=== PATIENT | male | born 1990 | race Caucasian/White ===

== ENCOUNTER 2024-07-19 12:41 | Inpatient (IN) ==
[2024-07-19 13:31] LABS: iSTAT Ionized Calcium 1.16 mmol/l (1.12-1.32); iSTAT Potassium 3.9 mmol/L (3.3-5.0)
--- NOTE | 2024-07-19 13:55 | XRay Report ---
XR chest 1V not portable HISTORY: 33 years-old Male stroke alert acute stroke like symptoms COMPARISON: None TECHNIQUE: PA view of the chest FINDINGS: Cardiomediastinal and hilar silhouettes are within normal limits. No pneumothorax, pleural effusion o r airspace consolidation. The bones appear normal. IMPRESSION: No acute process. ACT 112: Negative or not required by law. The above report was generated using voice recognition software. It may contain grammatical, syntax o r spelling errors. Electronically signed by: Abdoul Kauffman M.D. 07/19/2024 1:54 PM
[2024-07-19 13:57] LABS: Hematocrit (blood only) 44.7 % (42.0-52.0); Hemoglobin 14.3 g/dl (14.0-18.0); Mean Corpuscular Hemoglobin 25.8 pg (25.0-34.0); Mean Corpuscular Volume 80.5 fL (80.0-100.0); Mean Platelet Volume 10.8 fL (9.4-12.4); Platelet Count 294 K/uL (130-400); RDW Coefficient of Variation 14.1 % (11.5-14.5); Red Blood Count 5.55 M/uL (4.70-6.10); White Blood Count 7.77 K/ul (4.8-10.8)
[2024-07-19 14:01] LABS: Albumin Globulin Ratio 1.6 (0.9-2); Albumin Level 4.2 gm/dl (3.4-5.0); BUN Creatinine Ratio 23.1 (10-20); Bilirubin,Total 0.4 mg/dl (0.2-1.0); Creatinine Clr Calc Pharmacy 142.5 ml/min; Globulin 2.7 gm/dl (2.5-4.0); Magnesium 1.9 mg/dl (1.7-2.4); Total Protein 6.9 gm/dl (6.0-8.3)
[2024-07-19 14:02] LABS: Partial Thromboplastin Ratio 0.9; Partial Thromboplastin Time 25 Seconds (21-31); Prothrombin Time 10.9 Seconds (9.0-12.0)
--- NOTE | 2024-07-19 15:01 | Emergency Department Note ---
Impression & Plan Acute CVA (cerebrovascular accident), Left-sided weakness ED Provider Note NAME: LAY LI Jr AGE: 33 SEX: M : 1990 ARRIVES VIA: Walk-In INFORMANT: Patient ED PROVIDER(S): Jc Vernon DO CHIEF COMPLAINT: Left-sided weakness HPI: Patient is a 33-year-old male who presents to the ER for left-sided weakness. He notes that this started yesterday morning when he woke up. He was having trouble talking and weakness on his left side. The talking has improved as well as the left-sided weakness. Significant other is present at bedside and confirms the left-sided weakness. Denies any headache or change or loss of vision. No chest pain or shortness of breath. No nausea vomiting or diarrhea. No dysuria urgency or frequency. No other exacerbating or remitting factors. ADDITIONAL HISTORY OBTAINED: Per HPI Chronic Medical/Social Conditions Affecting Care: Per HPI PAST MEDICAL HISTORY:See Below PAST SURGICAL HISTORY:See Below FAMILY HISTORY:See Below SOCIAL HISTORY:See Below HOME MEDICATIONS:See Below ALLERGIES:See Below VITALS:See Below PHYSICAL EXAMINATION: GENERAL: Sitting up in bed, alert, well appearing, well nourished, no distress, non-toxic EYE EXAM: normal conjunctiva. PERRL and EOM's grossly intact. OROPHARYNX: no exudate, no erythema, lips, buccal mucosa, and tongue normal and mucous membranes are moist NECK: supple, no nuchal rigidity, no adenopathy, non-tender LUNGS: Clear to auscultation. Normal chest wall mechanics HEART: no murmurs, S1 normal and S2 normal ABDOMEN: abdomen soft, non-tender, normo-active bowel sounds, no masses, no rebound or guarding. BACK: Back is symmetrical on inspection and there is no deformity, no midline tenderness, no CVA tenderness. SKIN: no rashes and no bruising UPPER EXTREMITIES: upper extremities are grossly normal. LOWER EXTREMITIES: No pitting edema. NEURO EXAM: Normal sensorium, cranial nerves II-XII intact, normal speech, subtle weakness on the left arm and left leg in comparison to the right. No drift. Finger to nose intact. Gross sensation intact. MEDICAL DECISION MAKING: Patient is a 33-year-old male who presents ER for left-sided weakness and trouble with his speech which started yesterday morning when he woke up. He is not a candidate for TNK. Stroke alert was not called. IV was established and blood work was obtained. Labs show no significant leukocytosis or anemia. INR unremarkable. BMP along with LFTs bilirubin is unremarkable. CT angios of the head and neck to show a right basal ganglial stroke. Patient was discussed with [facility] telestroke and they recommended 300 of Plavix, aspirin and admission to the hospitalist. Discussed case with the hospitalist for further evaluation management treatment. Consults/Care Managements Discussions: Per [facility] Triage Nursing notes reviewed. Limited review of prior medical records performed Vital Signs: reviewed and remarkable for HTN Differential diagnosis: Differential Diagnosis includes but is not limited to ischemic Stroke, hemorrhagic stroke, bells palsy, mass, neoplasm, migraine headache, seizure, subarachnoid hemorrhage, TIA, and transient global amnesia. ER treatment provided: See below Diagnostics interpreted by me include EKG and cardiac monitoring as listed below: -Cardiac Monitoring: An order was placed for continuous cardiac monitoring. The monitor shows a rate of 90 with sinus rhythm. -ECG: Sinus rhythm rate 80 Normal axis No PVCs QTc 424 -Laboratory studies:Interpreted by me as stated above in MDM and shown below. Imaging studies: Xrays: As interpreted by me: Portable AP upright 1 view of the chest shows no focal infiltrate CTs show: CT angios of the head and neck show CVA Procedures:none Critical Care: None Past Med/Surg History Problem List (Updated 07/19/24 @ 20:43 by Jc Vernon DO) Left-sided weakness (Acute) Acute CVA (cerebrovascular accident) (Acute) Social History Smoking Status: Never smoker Tobacco Type: Smokeless Tobacco (Dip or Chew) Do You Dip or Chew Tobacco: Yes; Hx Alcohol Use: Yes Alcohol type: beer Hx Substance Use: No Preferred Language: Indonesian Vp Product Required: No Beliefs That Will Affect Care: None Current Living Situation: Spouse Feels Safe at Home: Yes Assistive Devices: None Allergies Allergies Allergy/AdvReac Type Severity Reaction Status Date / Time No Known Allergies Allergy Unverified 07/19/24 17:36 Home Meds Home Medications Medication Instructions Recorded Confirmed Vitamin C 1 tab PO DAILY 07/19/24 07/19/24 flaxseed oil 1 cap PO DAILY 07/19/24 07/19/24 multivitamin 1 tab PO DAILY 02/03/25 02/03/25 vitamin E 1 cap PO DAILY 07/19/24 07/19/24 Results & Data (ED) Vital Signs Vital Signs - 24 hr 07/19/24 12:44 07/19/24 15:02 07/19/24 15:27 Temperature 36.8 C Temperature Source Temporal Artery Scan Pulse Rate 94 H 77 Pulse Rate [Right Finger] 72 Pulse Rhythm Pulse Rhythm [Right Finger] Regular Pulse Strength [Right Finger] Normal Respiratory Rate 18 16 Respiratory Effort / Characteristics Non-Labored Spontaneous Non-Labored Respiratory Depth Normal Normal Respiratory Pattern Regular Regular Blood Pressure 151/93 H Blood Pressure [Right Arm] 148/84 H Blood Pressure Mean 112 Blood Pressure Mean [Right Arm] 105 Blood Pressure Position [Right Arm] Lying Pulse Oximetry 98 99 Oxygen Delivery Method Room Air Room Air Sepsis Recent Fever Within 48 Hours No Sepsis New/Unexplained Change in Mental Status No Sepsis Action Taken by Nursing No Action Required 07/19/24 15:27 Temperature Temperature Source Pulse Rate 78 Pulse Rate [Right Finger] Pulse Rhythm Regular Pulse Rhythm [Right Finger] Pulse Strength [Right Finger] Respiratory Rate 16 Respiratory Effort / Characteristics Respiratory Depth Respiratory Pattern Blood Pressure Blood Pressure [Right Arm] Blood Pressure Mean Blood Pressure Mean [Right Arm] Blood Pressure Position [Right Arm] Pulse Oximetry 98 Oxygen Delivery Method Room Air Sepsis Recent Fever Within 48 Hours Sepsis New/Unexplained Change in Mental Status Sepsis Action Taken by Nursing Laboratory Data 07/19/24 13:14 07/19/24 13:14 Lab Results 07/19/24 07/19/24 Range/Units 13:14 13:19 WBC 7.77 (4.8-10.8) K/ul RBC 5.55 (4.70-6.10) M/uL Hgb 14.3 (14.0-18.0) g/dl POC Hgb 15.0 (14.0-18.0) g/dl Hct 44.7 (42.0-52.0) % POC Hct 44 (42-52) % MCV 80.5 (80.0-100.0) fL MCH 25.8 (25.0-34.0) pg MCHC 32.0 (32.0-36.0) g/dL RDW Std Deviation 41.0 (36.4-46.3) fL RDW Coeff of Arlin 14.1 (11.5-14.5) % Plt Count 294 (130-400) K/uL MPV 10.8 (9.4-12.4) fL PT 10.9 (9.0-12.0) Seconds INR 1.0 (0.9-1.1) APTT 25 (21-31) Seconds PTT Ratio 0.9 POC Sodium 140 (135-144) mmol/L Sodium 139 (136-145) mmol/L POC Potassium 3.9 (3.3-5.0) mmol/L Potassium 4.0 (3.5-5.1) mmol/L POC Chloride 103 (101-112) mmol/L Chloride 104 (98-107) mmol/L Carbon Dioxide 28 (21-32) mmol/L POC Total CO2 25 (24-31) mmol/L Anion Gap 7 (3-11) POC Anion Gap 17.0 (16-25) mmol/L POC BUN 21 H (7-18) mg/dl BUN 21 (6-23) mg/dl Creatinine 0.91 (0.6-1.4) mg/dl POC Creatinine 1.0 (0.6-1.3) mg/dl Est Cr Clr Drug Dosing 142.5 ml/min eGFR 114.13 BUN/Creatinine Ratio 23.1 H (10-20) Glucose 123 H (70-99(Fasting)) mg/dl POC Glucose (other) 122 H (70-99) mg/dl Calcium 9.0 (8.6-10.3) mg/dl POC Ioniz Calcium Liz 1.16 (1.12-1.32) mmol/l Magnesium 1.9 (1.7-2.4) mg/dl Total Bilirubin 0.4 (0.2-1.0) mg/dl AST 21 (13-39) U/L ALT 29 (7-52) U/L Alkaline Phosphatase 43 (34-104) U/L Total Protein 6.9 (6.0-8.3) gm/dl Albumin 4.2 (3.4-5.0) gm/dl Globulin 2.7 (2.5-4.0) gm/dl Albumin/Globulin Ratio 1.6 (0.9-2) Lyme Disease Screen Negative (Negative) Administered Medications Atorvastatin Calcium (Atorvastatin 40 Mg Tab) 40 mg PO QPM MAURI Stop: 08/18/24 17:59 Last Admin: 07/19/24 20:25 Dose: 40 mg Documented By: BURTON Discontinued Medications Aspirin (Aspirin Chew 324 Mg) 81 mg PO NOW STA Stop: 07/19/24 15:56 Last Admin: 07/19/24 16:09 Dose: 81 mg Documented By: BENITO Clopidogrel Bisulfate (Clopidogrel Bisulfate 300 Mg Tab) 300 mg PO NOW STA Stop: 07/19/24 15:56 Last Admin: 07/19/24 16:09 Dose: 300 mg Documented By: BEINTO Ioversol (Optiray 320 125ml) 119 ml IV ONCE ONE Stop: 07/19/24 15:10 Last Admin: 07/19/24 15:09 Dose: 119 ml Documented By: BOY Imaging Data Radiologist's Impression: Chest X-Ray 07/19/24 12:54 XR chest 1V not portable HISTORY: 33 years-old Male stroke alert acute stroke like symptoms COMPARISON: None TECHNIQUE: PA view of the chest FINDINGS: Cardiomediastinal and hilar silhouettes are within normal limits. No pneumothorax, pleural effusion or airspace consolidation. The bones appear normal. IMPRESSION: No acute process. ACT 112: Negative or not required by law. The above report was generated using voice recognition software. It may contain grammatical, syntax or spelling errors. Electronically signed by: Abdoul Kauffman M.D. 07/19/2024 1:54 PM Head CTA 07/19/24 14:54 CT angio head wo/w CLINICAL HISTORY: Left-sided weakness. COMPARISON STUDY: No previous studies for comparison. TECHNIQUE: Unenhanced and arterial phase imaging of the head was performed. Intravenous injection of 119 cc of Optiray 320 IV was uneventful. Sagittal and coronal reconstructions were viewed as well as maximal intensity projections on an independent 3-D workstation. Automated exposure control was utilized for the study. A dose lowering technique was utilized adhering to the principles of ALARA. FINDINGS: No acute intracranial hemorrhage, midline shift or mass effect is present. Ventricular system is normal. Basal cisterns are patent. There are no intra-axial collections. There is a 3.2 x 0.8 cm elongated hypodense focus within the right basal ganglia. No additional abnormalities are identified on this examination. The bilateral M1, M2, A1 and A2 segments are patent. No large vessel occlusion is identified. No intracranial aneurysm is identified. The posterior circulation is also intact. The major dural sinuses are patent. IMPRESSION: 1. No acute intracranial hemorrhage. 2. 3.2 x 0.8 cm hypodense focus within the right basal ganglia suggestive of an acute infarct. No mass effect. Findings discussed with Dr. Vernon at time of dictation. 3. No large vessel occlusion. No intracranial aneurysm. ACT 112: Negative or not required by law. Electronically signed by: Dominic Redd M.D. 07/19/2024 3:38 PM Neck CTA 07/19/24 14:54 CT angio neck with con CLINICAL HISTORY: 33 years-old Male with l sided weakness. Acute stroke like symptoms with left-sided weakness COMPARISON STUDY: CTA head of same day TECHNIQUE: Following the IV administration of 119 mL of Optiray, CT angiogram of the neck was performed from the aortic arch to the skull base. Images are reviewed in the axial, sagittal, and coronal planes. 3-D MIPS images are created and assessed. IV contrast was administered without complication. All measurements were calculated based on NASCET criteria. A dose lowering technique was utilized adhering to the principles of ALARA. CT DOSE: 1594.52 mGy.cm FINDINGS: Three-vessel morphology of the thoracic arch. There is patency of the and innominate and image subclavian arteries. The common and internal carotid arteries are widely patent. Codominant and patent vertebral arteries. Imaged basilar artery is patent. Lung apices appear clear. Unremarkable soft tissues. Postoperative changes of the mandible. IMPRESSION:Unremarkable CTA of the neck. ACT 112: Negative or not required by law. The above report was generated using voice recognition software. It may contain grammatical, syntax or spelling errors. Electronically signed by: Abdoul Kauffman M.D. 07/19/2024 3:26 PM Discharge Plan Visit Data Chief Complaint: TIA Symptoms Stated Complaint: L SIDED WEAKNESS, TROUBLE TALKING, STARTED YESTERD ED Provider: Jc Vernon Discharge Problem: Acute CVA (cerebrovascular accident), Left-sided weakness Patient Disposition: Admitted As Inpatient Discharge Instructions Interventions: ED Discharge Assessment Last Done: 07/19/24 18:05
[2024-07-19] MEDS: OPTIRAY 320 125ml IV ONE (15:09)
--- NOTE | 2024-07-19 15:28 | CT Scan Report ---
CT angio neck with con CLINICAL HISTORY: 33 years-old Male with l sided weakness. Acute stroke like symptoms with left-si ded weakness COMPARISON STUDY: CTA head of same day TECHNIQUE: Following the IV administration of 119 mL of Optiray, CT angiogram of the neck was perform ed from the aortic arch to the skull base. Images are reviewed in the axial, sagittal, and coronal pl anes. 3-D MIPS images are created and assessed. IV contrast was administered without complication. Al l measurements were calculated based on NASCET criteria. A dose lowering technique was utilized adhe ring to the principles of ALARA. CT DOSE: 1594.52 mGy.cm FINDINGS: Three-vessel morphology of the thoracic arch. There is patency of the and innominate and image subcla vian arteries. The common and internal carotid arteries are widely patent. Codominant and patent vert ebral arteries. Imaged basilar artery is patent. Lung apices appear clear. Unremarkable soft tissues. Postoperative changes of the mandible. IMPRESSION:Unremarkable CTA of the neck. ACT 112: Negative or not required by law. The above report was generated using voice recognition software. It may contain grammatical, syntax o r spelling errors. Electronically signed by: Abdoul Kauffman M.D. 07/19/2024 3:26 PM
--- NOTE | 2024-07-19 15:39 | CT Scan Report ---
CT angio head wo/w CLINICAL HISTORY: Left-sided weakness. COMPARISON STUDY: No previous studies for comparison. TECHNIQUE: Unenhanced and arterial phase imaging of the head was performed. Intravenous injection of 119 cc of Optiray 320 IV was uneventful. Sagittal and coronal reconstructions were viewed as well as maximal intensity projections on an independent 3-D workstation. Automated exposure control was utili A's Child for the study. A dose lowering technique was utilized adhering to the principles of ALARA. FINDINGS: No acute intracranial hemorrhage, midline shift or mass effect is present. Ventricular syst em is normal. Basal cisterns are patent. There are no intra-axial collections. There is a 3.2 x 0.8 c m elongated hypodense focus within the right basal ganglia. No additional abnormalities are identifie d on this examination. The bilateral M1, M2, A1 and A2 segments are patent. No large vessel occlusion is identified. No intracranial aneurysm is identified. The posterior circulation is also intact. The major dural sinuses are patent. IMPRESSION: 1. No acute intracranial hemorrhage. 2. 3.2 x 0.8 cm hypodense focus within the right basal ganglia suggestive of an acute infarct. No mas s effect. Findings discussed with Dr. Vernon at time of dictation. 3. No large vessel occlusion. No intracranial aneurysm. ACT 112: Negative or not required by law. Electronically signed by: Dominic Redd M.D. 07/19/2024 3:38 PM
[2024-07-19] MEDS: CLOPIDOGREL BISULFATE 300 MG TAB PO STA (16:09)
[2024-07-19] MEDS: ASPIRIN CHEW 324 MG PO STA (16:09)
[2024-07-19] MEDS ORDERED: PHARMACIST DISCHARGE MED REC CONSULT PRN (16:59)
--- NOTE | 2024-07-19 17:25 | Electrocardiogram Report ---
Test Reason : Blood Pressure : */* mmHG Vent. Rate : 80 BPM Atrial Rate : 80 BPM P-R Int : 144 ms QRS Dur : 92 ms QT Int : 368 ms P-R-T Axes : 38 59 13 degrees QTcB Int : 424 ms Normal sinus rhythm Normal ECG No previous ECGs available Confirmed by Sohan Soler ([id number]) on 07/19/2024 5:24:50 PM Referred By: Confirmed By: Shoan Soler
--- NOTE | 2024-07-19 17:57 | History & Physical Report ---
Date of Service July 19, 2024 Assessment & Plan (1) Acute CVA (cerebrovascular accident): Plan: Assessment: 1. Acute right sided basal ganglia CVA 3.2 x 0.8 cm already evident by CAT scan. Symptoms started early yesterday morning that he woke up with therefore h is last known well time was actually Friday night prior to bed. Telestroke's been consulted. Patient placed on the stroke service. Local neurology consulted. Patient spoke with local neurologist Dr. Gonzalez. MRI of the brain will be ordered. We have informed family to come admission that are MRIs currently out of service but the part is ordered and hopefully will be available for imaging in the next 24 to 48 hours. Aspirin therapy on Plavix therapy/dual antiplatelet therapy per telestroke neurology recommendations. I have added statin therapy. Will do permissive hypertension. Echocardiogram with bubble study. Patient's deficits currently include left upper and lower extremity weakness as discussed above as well as some discoordination of his left hand with associated left-sided facial droop. 2. Unknown lipid status. Lipitor 40 mg daily. Lipid panel in the AM. Plan: As discussed above. Please refer to orders for further planning. History of Present Illness Chief Complaint: Left upper and lower extremity weakness with left-sided facial droop with mild dysarthria. Primary Care Provider: NO PCP This is a 33-year-old male who is completely healthy at baseline. He woke up early yesterday morning-Friday morning-and had left-sided upper and lower extremity weakness with left-sided facial droop and some mildly slurred speech. At that time the patient felt that that he was tired he went back to bed and according to he and his slept most of the day. He did wake up for dinner. His symptoms were still present. They were no better. There were no worse. He ate dinner and went to bed and woke up this morning. This morning he still had his symptoms again there had been no progression and no real significant improvement with exception his speech was mildly improved and his left lower extremity weakness was also improving. Due to the longevity of his symptoms he thus presented to the emergency department for further evaluation and treatment. In the emergency department he had laboratory data that was unremarkable and vital signs which were unremarkable. Neuroimaging showed a normal CTA of the head and neck however there was a 3.2 x 8 cm hypodense focus within the right basal ganglia suggestive of an evolving acute infarct. ER provider called me to entertain admission. I recommend discussion with telestroke. Per the ER provider he did speak with the telestroke doctor per my request and they had recommended loading with Plavix and aspirin and place the patient on the stroke protocol. Will continue Plavix 75 daily as well as aspirin 81 daily. We have added statin therapy to the patient's regimen. The patient has 0 risk factors for CVA as discussed below he works out daily. He is fit. He has no family history of cerebrovascular or cardiovascular disease with exception of his father having a cardiac stent in his 60s. Patient has no chronic illnesses whatsoever and takes no prescription medications whatsoever he is a non-smoker. We discussed the patient locally with neurology Dr. Gonzalez. Will continue the stroke protocol. Continue statin aspirin and Plavix. Will allow for permissive hypertension. We discussed with the patient his and his father at the bedside extensively that this is a peculiar stroke given his otherwise healthy state and young age. We suspect the patient very well could have a PFO. We did order an echocardiogram with bubble study. We did explain to the patient family that if this was positive for PFO he would probably be recommended to take a different anticoagulant as opposed to the Plavix and aspirin. The patient has never been in the [facility] system EMR.: Past medical history: None. Past surgical history: [place] teeth only. 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 Denies use of tobacco or illicit street drugs. He does drink alcohol once or twice monthly only on occasion during the weekend. He works out daily. Family medical history: Negative for cerebrovascular disease. Only positive for coronary artery disease in his father with 1 stent in his 60s. CODE STATUS: Full code. I personally discussed with patient at the bedside today. Allergies Allergy/AdvReac Type Severity Reaction Status Date / Time No Known Allergies Allergy Unverified 07/19/24 17:36 Home Medications Medication Instructions Recorded Confirmed Type Vitamin C 1 tab PO DAILY 07/19/24 07/19/24 History flaxseed oil 1 cap PO DAILY 07/19/24 07/19/24 History multivitamin 1 tab PO DAILY 07/19/24 07/19/24 History vitamin E 1 cap PO DAILY 07/19/24 07/19/24 History Past Med/Surg History Problem List (Updated 07/19/24 @ 17:54 by Speedy Gallegos, PhD, DO) Acute CVA (cerebrovascular accident) Social History Smoking Status: Never smoker Preferred Language: Nigerian Feels Safe at Home: Yes Review of Systems Review of Systems: A 10 point review of system was obtained and unless otherwise stated here or in history of present illness are negative and noncontributory to chief complaint. Physical Exam Physical Exam: In General: In general is a 33-year-old male is alert oriented x 3 at the time my exam he interacts appropriately pleasantly is accompanied by both his and his father at the time of my examination whom he grants permission for both to be present during my interview and examination. He has no complaints except the weakness is discussed. HEENT: Left-sided facial droop evident on gross inspection. Atraumatic pupils are equal round and reactive to light bilaterally. No scleral icterus no conjunctival injection external auditory canals are patent septum is in the midline nose is without discharge oral mucosa is pink and moist without lesion. NECK: Supple no rigidity no lymphadenopathy no thyromegaly no carotid bruits no JVD no masses. HEART: Regular rate and rhythm I do not appreciate any ectopy or rub. No murmur. LUNGS: Clear to auscultation bilaterally and anteriorly with no evidence of adventitious sounds/wheezes rales or rhonchi. ABDOMEN: Soft nontender, no rebound, no peritoneal signs, positive bowel sounds, no appreciable organomegaly. EXTREMITIES: Intact, no peripheral cyanosis, clubbing or edema. Strength is 5 out of 5 in right sided extremities. His strength is 4+ out of 5 in his left upper extremity and 4+ out of 5 in his left lower extremity., no pathological reflexes. Mild pronator drift is evident of the left upper extremity. In addition the patient has discoordination of the left hand compared to the right hand with fine motor skills. There is no loss of sensation to fine pinprick. NEUROLOGICAL: Other than described above, cranial nerves II through XII are grossly intact with no focal deficit elicited upon examination. No tremor. Results & Data Results & Data Vital Signs (Past 12 Hours) Vital Signs Temp Pulse Pulse Resp BP BP Pulse Ox 07/19/24 15:27 78 16 98 07/19/24 15:27 72 16 148/84 H 99 07/19/24 15:02 77 07/19/24 12:44 36.8 C 94 H 18 151/93 H 98 O2 Del Method 07/19/24 15:27 Room Air 07/19/24 15:27 Room Air 07/19/24 15:02 07/19/24 12:44 Room Air Code Status & VTE Plan Code Status Full code. I personally discussed with patient. VTE Prophylaxis Plan VTE Prophylaxis will be ordered: Yes PG Care Time/CCT Total # of Minutes Spent Total Time Spent with Patient: Total time spent is greater than 50% in coordination of care (as documented) at patient's floor/unit and/or counseling patient: Coding Level of Care Code 30766 INT INP/OBS CARE 375MIN Diagnoses Acute CVA (cerebrovascular accident) I63.9
[2024-07-19] MEDS: ATORVASTATIN 40 MG TAB PO SCH (20:25)
[2024-07-20 06:33] LABS: Basophils # (auto) 0.08 K/uL (0.00-0.20); Eosinophils # (auto) 0.77 K/uL (0.00-0.50); Eosinophils % (auto) 9.5 %; Hematocrit (blood only) 43.2 % (42.0-52.0); Immature Granulocytes # (auto) 0.06 K/uL (0.01-0.20); Immature Granulocytes % (auto) 0.7 %; Lymphocytes # (auto) 3.19 K/uL (1.20-3.40); Lymphocytes % (auto) 39.3 %; Mean Corpuscular Hgb Conc 32.4 g/dL (32.0-36.0); Mean Corpuscular Volume 80.1 fL (80.0-100.0); Mean Platelet Volume 11.1 fL (9.4-12.4); Monocytes # (auto) 0.77 K/uL (0.11-0.59); Monocytes % (auto) 9.5 %; Neutrophils # (auto) 3.25 K/uL (1.40-6.50); Platelet Count 293 K/uL (130-400); RDW Coefficient of Variation 13.9 % (11.5-14.5); RDW Standard Deviation 40.5 fL (36.4-46.3); Red Blood Count 5.39 M/uL (4.70-6.10); White Blood Count 8.12 K/ul (4.8-10.8)
[2024-07-20 06:51] LABS: BUN Creatinine Ratio 20.2 (10-20); Chol HDL Ratio 4.9 (0-5); Creatinine Clr Calc Pharmacy 131.7 ml/min; Potassium 4.3 mmol/L (3.5-5.1)
[2024-07-20 07:48] VITALS: TEMP 98.1
[2024-07-20] MEDS: CLOPIDOGREL BISULFATE 75 MG TAB PO SCH (09:07)
[2024-07-20] MEDS: ASPIRIN 81 MG ECTAB PO SCH (09:07)
--- NOTE | 2024-07-20 09:09 | Neurology Consultation ---
Date of Consultation July 20, 2024 Assessment & Plan (1) Acute CVA (cerebrovascular accident): (2) Left-sided weakness: (3) Dysarthria: (4) Dyslipidemia: Plan Is patient clinically and by CT scan suffered an acute stroke on July 17 (woke with it) resulting in some mild left hemiparesis and dysarthria. Currently, he has slight dysarthria at best and is swallowing fine. He has some clumsiness of the left hand with mild only and a little asymmetry weakness at the corner of the mouth on the left. Proximal left upper extremity and left lower extremity are normal. 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 CT scan of the head showed a linear lesion in the right basal ganglia of uncertain age but likely acute. CT angiography of the head and neck was unremarkable echocardiogram is pending. Patient does have some risk factors for stroke including hypertension and dyslipidemia. These could have caused typical small vessel ischemic disease in the basal ganglia. However, I cannot entirely exclude embolic stroke. Family history is pertinent for clotting disorder and heart condition in his mother. I cannot entirely exclude a heart condition (PFO) or genetic clotting condition in this patient (although he has no history of clot otherwise). Recommendations: 1. Await echocardiogram results 2. Patient needs an MRI of the brain as soon as possible, to help delineate this stroke and evaluate for previous ischemic disease 3. Agree with 81 mg aspirin and 75 mg clopidogrel for now. Continue this dual antiplatelet therapy for 3 weeks and then discontinue clopidogrel and remain on 81 mg aspirin alone. 4. Control blood pressure as you are doing, aiming for a mean arterial pressure of 95-100. 5. The patient technically would be a high-dose statin candidateagree with atorvastatin 40 for now. 6. Obtain laboratory studies for clotting disorders (for example, factor V Leiden, D-dimer, prothrombin gene mutation, Antithrombin III, protein C, protein S, antiphospholipid antibodies, MTHFR, anticardiolipin antibodies etc.), as well as ESR, CRP, B12, homocystine. 7. Can follow-up with neurology 3 to 4 weeks after discharge with neurology PA 8. This patient needs a PCP for follow-up Overall, I spent a total of 90 minutes with this case including review of records, review of CT films, direct evaluation the patient at bedside, report generation, and discussion of the case with the patient and RN at bedside and Dr. Mcdonald, including differential diagnosis and treatment options. History of Present Illness Reason for Consultation: Patient is a 33-year-old, who I was asked to see at the request of Dr. Speedy Gallegos, for neurologic evaluation regarding new onset left hemiparesis and dysarthria, suspect stroke Requesting Physician: Dr. Gallegos Attending Physician: Trudy Mcdonald MD History of Present Illness This patient tells me that he has had occasional readings of high blood pressure in the past but no one has ever treated him with medication. He has not had any heart disease or diabetes. He is unaware of any cholesterol or other issues. He is on no prescription medication. Patient was in his usual state of health July 17, going to sleep as usual feeling fine. He woke up on July 18 at 0900 with a feeling of weakness all over and both arms asleep. After a few minutes of waking up and getting out of bed he noticed that his left hand and arm were clumsy in his left leg was weak. He had some slurred speech as well. He had no double vision, actual lack of feeling or numbness, pain or headache, urinary incontinence, or cognitive problems. His symptoms persisted but he refused to go to the emergency room, as his suggested. He was the same all day and went to bed with the same symptoms he woke with. He woke on the morning of July 19 feeling about the same as the previous day. Because of this he came to the emergency room. He arrived July 19 at 1244 with a temperature of 36.8, pulse 90s and regular, respiratory rate 18, blood pressure 151/93 and O2 saturation 98%. Revealed some very mild weakness of the left arm and leg, but no significant speech problem. CBC and CHEM profile were unremarkable. Lyme antibody titer was normal. Chest x-ray was unremarkable. CT scan of the head revealed a 3.2 x 0.8 cm hypodensity in the right basal ganglia (very linear). I reviewed these films and I am not certain if this lesion is consistent with a new or subacute lesion. No other abnormalities were seen. CT angiography of the head and of the neck were unremarkable without vascular anomalies or stenoses. The patient was unable to get an MRI of the brain as the machine was down for repairs. Today, the patient feels better with less weakness in the arm and leg but still with some clumsiness in the hand and some slightly slurred speech. Blood pressure was 150/86. CBC and CHEM profile were unremarkable. Triglycerides were 174 and total cholesterol 210. He has been in normal sinus rhythm. Patient has a history of his mother who has atrial fibrillation, DVT and a blood clotting disorder that led to a right lower extremity amputation. The patient himself has never had any blood clots that he is aware and he has not had any meningitis or exposure to any toxins or chemicals. He had 2 concussions as a child, most recently age 16, when he had loss of consciousness for a few minutes (playing football). He recovered from this completely shortly after the incident. Allergies Allergy/AdvReac Type Severity Reaction Status Date / Time No Known Allergies Allergy Unverified 07/19/24 17:36 Home Medications Medication Instructions Recorded Confirmed Type Vitamin C 1 tab PO DAILY 07/19/24 07/19/24 History flaxseed oil 1 cap PO DAILY 07/19/24 07/19/24 History multivitamin 1 tab PO DAILY 07/19/24 07/19/24 History vitamin E 1 cap PO DAILY 07/19/24 07/19/24 History Patient History Medical History Hypertension Surgical History History of mandibular surgery Left jaw surgery/plate for osteomyelitis/infection following wisdom teeth removal H/O wisdom tooth extraction Family History Mother Atrial fibrillation Deep vein thrombosis Clotting disorder Father Coronary heart disease Social History Smoking Status: Never smoker Tobacco Type: Smokeless Tobacco (Dip or Chew) Cigarettes Per Day: Rarely chews: one can per year; Do You Dip or Chew Tobacco: Yes; Hx Alcohol Use: Yes Alcohol type: beer Alcohol Intake Frequency: Monthly or Le ss Hx Substance Use: No Preferred Language: Spanish Data Warehousing Manager Required: No Beliefs That Will Affect Care: None Current Living Situation: Spouse current occupational status: employed 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 Feels Safe at Home: Yes Assistive Devices: None Review of Systems Constitutional: no fever, no fatigue and no weakness Eyes: no diplopia, no eye pain and no worsening vision Ear, Nose, Mouth, Throat: no ear pain, no tinnitus, no hearing loss, no dizziness, no snoring, no hoarseness and no dysphagia Respiratory: no cough and no dyspnea Cardiovascular: no chest pain, no palpitations and no lightheadedness Gastrointestinal: no abdominal pain, no nausea and no vomiting Musculoskeletal: no back pain, no neck pain, no radicular pain, no joint pain and no myalgia Integumentary: no rash and no lesions Neurologic: + localized weakness and + abnormal spee ch; no gait abnormality, no generalized weakness, no tingling, no numbness, no tremor(s), no abnormal movements, no headache(s), no confusion and no memory loss Psychiatric: no depression, no irritability, no anxiety, no difficulty concentrating, no confusion and no hallucinations Endocrine: no fatigue and no flushing Hematologic / Lymphatic: no easy bleeding and no easy bruising Allergy / Immunological: no urticaria and no problem reported Exam (Neuro) Physical Exam: The patient is right-handed. The patient is awake, alert, and attentive. Speech is without any aphasia. There is some slight dysarthria only. Mentation and thought processes are intact, with full orientation and normal fund of knowledge. Mood and affect are normal and appropriate. Appearance and grooming are normal. Short and long-term memory are intact to conversation. Pupils are 4 mm bilaterally and reactive to light. Extraocular eye muscles are intact without nystagmus. Visual acuity and visual jeter seem normal grossly to confrontation. There are no deficits to sensation in the face in all 3 distributions of the fifth cranial nerve bilaterally. Corneal reflexes are positive bilaterally. There is some slight facial asymmetry on the left moving not quite as well on the left compared to the right with voluntary smile. Hearing seems intact grossly to voice and finger rub bilaterally. Palate moves well without asymmetry. There is normal sternocleidomastoid and trapezius strength bilaterally. Tongue is midline with good strength bilaterally. Neck has a full range of motion without discomfort. There are no cervical bruits bilaterally. There are no cranial or ocular bruits. Heart is without murmur. There is a regular rhythm and rate. Cervical, thoracic, and lumbar spine are nontender to palpation. Gait is narrow based, with good arm swing, turns, and stance. Balance is normal eyes open or closed. With outstretched arms there is no drift. There are no resting, postural, or action tremors. There is no ataxia with finger to nose testing. There is good facility in the hands. No other abnormal involuntary movements are noted. Motor strength is 5/5 diffusely in the right upper extremity including deltoids, biceps, triceps, brachioradialis, wrist flexors and extensors, grocery shopper, and in trinsic hand muscles. Motor strength in the left upper extremity is 5/5 proximally (biceps, triceps, deltoid) and 4+/5 in the grocery shopper and intrinsic hand muscles as well as finger extensors on the left. Motor strength is 5/5 diffusely in the legs bilaterally including hip flexors, quadriceps, hamstrings, gastrocnemius, tibialis anterior, tibialis posterior, and Peroneii muscles bilaterally. Toe extensors are normal and there is good bulk in the extensor digitorum brevis muscles bilaterally. The limbs have good tone without rigidity or spasticity. There is no atrophy noted in the muscles. Muscle bulk is normal, there is no tenderness to palpation, no myotonia to percussion, and no fasciculations seen. Sensory examination is intact to touch and pin throughout all 4 limbs diffusely. Reflexes are 2/4 in the biceps, triceps, quadriceps, and Achilles tendons bilaterally. Brachioradialis tendon reflexes are 1/4 bilaterally. Toes are downgoing with plantar stimulation bilaterally. Peripheral pulses are present and of normal quality distally in all 4 limbs. There is no peripheral edema noted in the limbs. Results & Data Vital Signs (Past 12 Hours) Vital Signs Temp Pulse Pulse Resp BP Pulse Ox O2 Del Method 07/20/24 07:47 36.7 C 72 19 150/86 H 96 Room Air 07/20/24 02:37 36.6 C 69 18 122/68 97 Room Air 07/19/24 23:05 73 07/19/24 22:42 36.8 C 82 18 138/79 97 Room Air PG Care Time/CCT Total # of Minutes Spent Total Time Spent with Patient: Total time spent is greater than 50% in coordination of care (as documented) at patient's floor/unit and/or counseling patient: Coding Level of Care Code 83668 INT INP/OBS CARE 3/75MIN Diagnoses Acute CVA (cerebrovascular accident) I63.9 Left-sided weakness R53.1 Dysarthria R47.1 Dyslipidemia E78.5 Time Spent (min) 90
[2024-07-20] MEDS: LORazepam 1 MG TAB SL ONE (11:52)
[2024-07-20] MEDS ORDERED: LORazepam 2 MG/1 ML VIAL IV PRN ×2 (12:03→12:13)
--- NOTE | 2024-07-20 12:20 | XCELERA ---
[id number]
--- NOTE | 2024-07-20 12:21 | XRay Report ---
[facility] RADIOGRAP[facility] 3 VIEWS HISTORY: pre-MRI screening. COMPARISON: CTA of the head July 19, 2024. FINDINGS: There are no radiopaque foreign bodies identified within the orbits. There are several dent al amalgams and a left mandibular internal fixation plate. IMPRESSION: No radiopaque foreign bodies identified within the orbits. ACT 112: Negative or not required by law. Electronically signed by: Dominic Redd M.D. 07/20/2024 12:20 PM
--- NOTE | 2024-07-20 14:01 | Magnetic Resonance Report ---
MRI OF THE BRAIN WITHOUT CONTRAST CLINICAL HISTORY: Cerebrovascular accident. COMPARISON STUDY: Head CT and CTA of the head July 19, 2024. TECHNIQUE: Utilizing a 1.5 Marlen magnet and dedicated coil, multiplanar, multiecho imaging of the bra in was performed without IV contrast. FINDINGS: There is a 3.8 x 1 cm hyperintense focus within the right basal ganglia on the diffusion-we ighted sequence. This is hypointense on the ADC map and corresponds to the finding on head CT of [facility] 2024. This involves the right lentiform and caudate nuclei. No significant mass effect. There is no evidence for hemorrhagic conversion. No additional acute infarcts are present. Ventricular sys tem is unremarkable. Basal cisterns are patent. Flow-voids for the major intracranial vessels are pre sent. Calvarial signal is normal. No orbital abnormality. There is no evidence for sinusitis. There i s no mastoid fluid. No intracranial masses are identified on unenhanced exam. IMPRESSION: 1. 3.8 x 1 cm acute infarct within the right basal ganglia which corresponds to the finding on head C T of July 19, 2024. No significant mass effect. No evidence for hemorrhagic conversion. 2. No additional infarcts. ACT 112: Negative or not required by law. Electronically signed by: Dominic Redd M.D. 07/20/2024 2:00 PM
[2024-07-20] MEDS: LORazepam 2 MG/1 ML VIAL ONE (14:24)
[2024-07-20 15:27] VITALS: BP 166/79; PULSE 81; RESP 19; O2SAT 95
[2024-07-20] MEDS ORDERED: STROKE PATIENT DISCHARGE STA (15:44)
--- NOTE | 2024-07-20 15:47 | Pharmacy Report ---
- Date of Service July 20, 2024 - Pharmacy CVA/TIA Medication Review Medications to Prevent Stroke handout has been added to the patients discharge packet. Antiplatelet(s) * Aspirin + Plavix Cholesterol * High intensity statin: atorvastatin 40 mg daily DVT Prophylaxis * SCD knee Therapeutic Anticoagulation * No history of Afib/Aflutter noted Type 2 Diabetes * Patient does not have T2DM
[2024-07-20 16:02] LABS: D Dimer 1180 ug/L FEU (0-500)
--- NOTE | 2024-07-21 18:14 | Discharge Summary ---
Discharge Summary Date of Service July 20, 2024 Principal Dx & Hospital Course #1 = Principal Diagnosis (1) Acute CVA (cerebrovascular accident): Healthy and fit 33-year-old man who presented with dysarthria and left-sided weakness, found to have acute ischemic stroke3.8 x 1 cm in right basal ganglia was beyond the time window for consideration of thrombolytics at presentation, telestroke consulted in ED CTA head and neck were negative for large vessel occlusion, dissections, or any significant stenoses brain MRI confirmed that this was acute stroke he was hypertensive in the hospital, seems to have had some degree of chronic hypertension not currently on treatment LDL was mildly elevated in the 130s TTE was normal negative bubble study hemoglobin A1c is still pending, low suspicion for diabetes non-smoker no evidence of atrial fibrillation on admitting EKG or telemetry monitoring neurologist consulted I discussed with him today. Daniel's case is unusual in the sense that he is quite young, he does have several risk factors for vascular disease and most likely this ischemic stroke is related to that. labs for extensive thrombophilia workup were sent, no personal history of VTE however his mother had VTE. all these labs are currently pending symptoms improved, dysarthria has improved a lot though still bothers him since his speech sounds clumsy, left-sided weakness essentially resolved except for so me left hand weakness given outpatient prescription for occupational therapy and speech therapy DAPT with aspirin and Plavix x 21 days, thereafter stop Plavix and continue aspirin indefinitely started atorvastatin 40 mg daily Start amlodipine 5 mg in proximately 5 days after a period of permissive hypertension -referral made for ambulatory gm mobile follow-up in primary care and with Dr. Gonzalez in [facility] [place] -referred to [facility] to establish primary care prior to discharge I counseled him no driving until cleared by physician, typically he lifts heavy weights - counseled that he should wait until after neurology follow-up to be cleared to resume this, he may continue low impact light intensity cardiovascular exercise for now (2) Dyslipidemia: (3) Hypertension: Notes For Next Care Provider hypercoagulability labs still pending: Antithrombin III activity, antiphospholipid antibodies, prothrombin gene mutation, factor V Leiden mutation, homocysteine, MTHFR, protein C and protein S, hemoglobin A1c it is unusual for the hemoglobin A1c to be pending this long and it may not have been properly submitted, please repeat on follow-up if it has not resulted monitor blood pressure and lipids referral made for ambulatory gm mobile Medication Changes From Visit new: Aspirin, Plavix, atorvastatin, amlodipine Admission HPI Per Admitting Provider This is a 33-year-old male who is completely healthy at baseline. He woke up early yesterday morning-Friday morning-and had left-sided upper and lower extremity weakness with left-sided facial droop and some mildly slurred speech. At that time the patient felt that that he was tired he went back to bed and according to he and his slept most of the day. He did wake up for dinner. His symptoms were still present. They were no better. There were no worse. He ate dinner and went to bed and woke up this morning. This morning he still had his symptoms again there had been no progression and no real significant impr ovement with exception his speech was mildly improved and his left lower extremity weakness was also improving. Due to the longevity of his symptoms he thus presented to the emergency department for further evaluation and treatment. In the emergency department he had laboratory data that was unremarkable and vital signs which were unremarkable. Neuroimaging showed a normal CTA of the head and neck however there was a 3.2 x 8 cm hypodense focus within the right basal ganglia suggestive of an evolving acute infarct. ER provider called me to entertain admission. I recommend discussion with t elestroke. Per the ER provider he did speak with the telestroke doctor per my request and they had recommended loading with Plavix and aspirin and place the patient on the stroke protocol. Will continue Plavix 75 daily as well as aspirin 81 daily. We have added statin therapy to the patient's regimen. The patient has 0 risk factors for CVA as discussed below he works out daily. He is fit. He has no family history of cerebrovascular or cardiovascular disease with exception of his father having a cardiac stent in his 60s. Patient has no chronic illnesses whatsoever and takes no prescription medications whatsoever he is a non-smoker. We discussed the patient locally with neurology Dr. Gonzalez. Will continue the stroke protocol. Continue statin aspirin and Plavix. Will allow for permissive hypertension. We discussed with the patient his and his father at the bedside extensively that this is a peculiar stroke given his otherwise healthy state and young age. We suspect the patient very well could have a PFO. We did order an echocardiogram with bubble study. We did explain to the patient family that if this was positive for PFO he would probably be recommended to take a di fferent anticoagulant as opposed to the Plavix and aspirin. The patient has never been in the [facility] system EMR.: Past medical history: None. Past surgical history: [place] teeth only. 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 Denies use of tobacco or illicit street drugs. He does drink alcohol once or twice monthly only on occasion during the weekend. He works out daily. Family medical history: Negative for cerebrovascular disease. Only positive for coronary artery disease in his father with 1 stent in his 60s. CODE STATUS: Full code. I personally discussed with patient at the bedside today. Discharge Exam PHYSICAL EXAMINATION Last 24h vital signs reviewed, see documentation in flowsheet General: comfortable appearing, no distress HEENT: Normocephalic, atraumatic, pupils round and equal, sclerae anicteric, no conjunctival injection, moist mucus membranes Lungs: Normal respiratory effort. Clear to auscultation bilaterally. No RRW Heart: Regular rate and rhythm, no murmurs. No JVD Abdomen: Soft, nontender, nondistended. Bowel sounds present. Extremities: Warm, dry, well-perfused. No extremity edema. Neuro: Alert and oriented x 4, face symmetric, moves 4 extremities well, mild dysarthria and mild left hand weakness Psych: Normal affect and behavior Discharge Plan Discharge Items Patient Disposition: Home - Self-Care Reason For Visit: CVA Discharge Diagnosis: Acute right basal ganglia ischemic stroke, hypertension Activity: As commented below Non-emergency contact: Primary Care Provider and Neurologist Call non-emergency contact if: you have any medication questions Follow-up/Referrals: Zac Gonzalez MD [Physician] - (Neurology will call Pt to schedule follow up) Aaron Rebollar CRNP [Nurse Practitioner] - 07/22/24 9:30 am (hospital follow up) PCP,NO [Primary Care Provider] - Diet: Regular Addtl Attending Provider Instructions: You were diagnosed with acute ischemic stroke in the right basal ganglia - an area deep in the center of the brain that is involved with motor control Based on your testing it looks like this was caused by atherosclerosis closing up a small blood vessel - you have a few risk factors for this (elevated blood pressure, some elevation of cholesterol). heart Echo was normal. Extensive lab testing was sent to look for a blood clotting tendency - these tests take a few weeks to get results meds: - aspirin and plavix - take both for 21 days then continue aspirin alone indefinitely - antiplatelet medications to prevent stroke - atorvastatin to lower cholesterol and prevent strokes - start amlodipine in five days - to control your blood pressure - we made referral for ambulatory heart monitor to check for arrhythmia that could lead to afib. Monitoring in the hospital was normal - outpatient OT is recommended - consider outpatient speech therapy if your speech isn't returning to normal in a short amount of time - follow up with neurologist in the office - establish with primary care as soon as possible for your blood pressure, cholesterol, and general health issues Pending Studies at Discharge: Yes Stand-Alone Forms: [facility], Smoking Cessation, Medications to P revent Stroke Medications and DC Order Prescriptions: New clopidogrel 75 mg Tablet 75 mg PO QAM Qty: 30 0RF atorvastatin 40 mg Tablet 40 mg PO DAILY Qty: 30 0RF aspirin 81 mg Tablet,Delayed Release (Dr/Ec) 81 mg PO DAILY Qty: 0 0RF Rx Instructions: buy over the counter amlodipine 5 mg tablet 5 mg PO DAILY Qty: 30 0RF Continued multivitamin Tablet 1 tab PO DAILY Vitamin C 1 tab PO DAILY Rx Instructions: otc unknown dose flaxseed oil 1 cap PO DAILY Rx Instructions: otc unknown dose vitamin E 1 cap PO DAILY Rx Instructions: otc unknown dose Discharge Orders: Discharge Order (Routine); Ordered 07/20/24 Ordered By: Trudy Mcdonald Admission Data Admit Date/Time: 07/19/24 17:02 Attending Provider: Trudy Mcdonald Admit Provider: Speedy Gallegos Primary Care Provider: PCP,NO Other Providers: Speedy Gallegos; Zac Gonzalez Other Interventions: Discharge Summary Assessment (RN) Last Done: 07/20/24 16:00 Hospital Stay Data Consultations 07/19/24 15:41 ED Decision to Admit Stat 07/19/24 16:59 Consult Neurology Routine Diagnostic Imagining Performed 07/19/24 14:54 CT angio head wo/w Stat CT angio neck with con Stat 07/20/24 13:00 MR brain wo con Routine Pending Results Patient Have Any Pending Studies at Discharge: Yes Discharge Instructions Given to Patient (Per Discharging Provider) You were diagnosed with acute ischemic stroke in the right basal ganglia - an area deep in the center of the brain that is involved with motor control Based on your testing it looks like this was caused by atherosclerosis closing up a small blood vessel - you have a few risk factors for this (elevated blood pressure, some elevation of cholesterol). heart Echo was normal. Extensive lab testing was sent to look for a blood clotting tendency - these tests take a few weeks to get results meds: - aspirin and plavix - take both for 21 days then continue aspirin alone indefinitely - antiplatelet medications to prevent stroke - atorvastatin to lower cholesterol and prevent strokes - start amlodipine in five days - to control your blood pressure - we made referral for ambulatory heart monitor to check for arrhythmia that could lead to afib. Monitoring in the hospital was normal - outpatient OT is recommended - consider outpatient speech therapy if your speech isn't returning to normal in a short amount of time - follow up with neurologist in the office - establish with primary care as soon as possible for your blood pressure, cholesterol, and general health issues Total Time Total Time Spent Total Time Spent (In Minutes): I personally spent: 45 minutes today on clinical care activities including: reviewing chart notes and vital signs reviewing labs reviewing studies discussion with managing consultant(s) discussion with progressive care manager, therapy prescriptions examining and counseling the patient counseling the patient's family writing prescriptions, discharge instructions documentation Coding Level of Care Code 74744 INP/OBS DISCH >30 MIN Diagnoses Acute CVA (cerebrovascular accident) I63.9 Dyslipidemia E78.5 Hypertension I10
[2024-07-22 06:47] LABS: Estimated Average Glucose 123 mg/dl; Hemoglobin A1C 5.9 % (4.5-5.6)
--- NOTE | 2024-07-22 09:25 | Pharmacy Report ---
Pharmacist Stroke Counseling - Date of Service July 22, 2024 - Scope: Pharmacy has been consulted to provide medication discharge counseling for this patient admitted with ischemic stroke as per the Pharmacist Discharge Counseling for Stroke Patients Protocol. - Medications on Discharge: Home Medications Medication Instructions Recorded Confirmed Vitamin C 1 tab PO DAILY 07/19/24 07/19/24 flaxseed oil 1 cap PO DAILY 07/19/24 07/19/24 multivitamin 1 tab PO DAILY 07/19/24 07/19/24 vitamin E 1 cap PO DAILY 07/19/24 07/19/24 New Rx's Medication Instructions Recorded amlodipine 5 mg tablet 5 mg PO DAILY #30 tabs 07/20/24 aspirin 81 mg tablet,delayed 81 mg PO DAILY #0 tabs 07/20/24 release atorvastatin 40 mg tablet 40 mg PO DAILY #30 tabs 07/20/24 clopidogrel 75 mg tablet 75 mg PO QAM #30 tabs 07/20/24 - Action: The above medications, specifically ones for stroke treatment/prophylaxis, have been reviewed in detail with the patient and/or patient office services representative(s) prior to discharge. This includes indication, common adverse reactions, drug interactions, and medication administration. Medication counseling has been employed using the teach-back method to ensure understanding. - Outcome: The patient and/or patient office services representative(s) have demonstrated understanding of the medications. Additional comments: - Patient confirmed that medications were picked up from pharmacy and that he has begun to take them - Reviewed instructions (21 days of aspirin and clopidogrel, then aspirin alone ongoing and to start amlodipine in 5 days from discharge) - No obvious barriers to medication compliance noted in interview Thank you for allowing pharmacy to be involved in the care of this patient. Please call [phone] with any additional questions
== END 2024-07-20 16:45 | disposition home or self-care (01) | DRG 65 ==
LOC: ED 12:41 → SUATTDRO 17:02 → 2S 17:02
DX: E78.5 Hyperlipidemia, unspecified; R47.1 Dysarthria and anarthria; G81.94 Hemiplegia, unspecified affecting left nondominant side; R29.702 NIHSS score 2; I63.9 Cerebral infarction, unspecified